=== PATIENT | male | born 1990 | race Hispanic/Latino ===

== ENCOUNTER → 2018-05-06 | Outpatient (REF) | payer OTHER ==
[~2018-05-06] MED LIST: AZIT500T2 PO; NAPR-50 PO; PRED20TA PO
[2018-05-06 22:46] LABS: CHLAMYDIA DNA AMPLIFICATION NEGATIVE (NEGATIVE); GC DNA AMPLIFICATION NEGATIVE (NEGATIVE)
== END ==
LOC: M SFHCLERA 13:16
PROVIDERS: ATTEND Physician Assistant
DX: J02.9 Acute pharyngitis, unspecified (principal)

== ENCOUNTER 2018-05-08 20:47 | Emergency (ER) | payer OTHER ==
[~2018-05-08] VITALS: Ht 180.3 cm; Wt 100.0 kg
[2018-05-08 20:47] VITALS: BP 141/76
[2018-05-08] MEDS ORDERED: NAPR-50 PO (22:13)
[2018-05-08] MEDS ORDERED: AZIT500T2 PO (22:13)
[2018-05-08] MEDS ORDERED: predniSONE 20 MG TAB PO ONE (23:00)
[2018-05-08] MEDS ORDERED: PRED20TA PO (23:08)
== END 2018-05-08 23:20 | disposition home or self-care (01) ==
LOC: M ED 20:47
DX: J03.80 Acute tonsillitis due to other specified organisms (principal); B97.89 Other viral agents as the cause of diseases classified elsewhere

== ENCOUNTER → 2019-03-16 | Outpatient (REF) | payer OTHER ==
[~2019-03-16] MED LIST changes: -AZIT500T2 PO; +AZIT500T5 PO; +IBUP-1114 PO; -NAPR-50 PO; +NAPR-837 PO; +TYLE-45 PO
== END ==
LOC: M SFHCLERA 10:04
PROVIDERS: ATTEND Physician Assistant
DX: J36 Peritonsillar abscess (principal)

== ENCOUNTER → 2020-06-05 | Outpatient (REF) | payer OTHER | LOC: M LAB REF 15:48 | PROVIDERS: ATTEND Otolaryngology | DX: H60.312 Diffuse otitis externa, left ear (principal) ==

== ENCOUNTER 2020-10-29 05:58 | Day surgery (SDC) | payer OTHER ==
[~2020-10-29] VITALS: Ht 182.9 cm; Wt 116.1 kg
[~2020-10-29 05:58] MED LIST changes: +AMOX125REC PO
[2020-10-29] MEDS ORDERED: MIDAZOLAM INJ 2MG/2ML VIAL (J2250 PER 1MG) As Ordered ONE (07:05)
[2020-10-29] MEDS ORDERED: ROCURONIUM BROMIDE 50 MG/5 ML VIAL As Ordered ONE (07:09)
[2020-10-29] MEDS ORDERED: fentaNYL 100 MCG/2 ML INJECTION (J3010) As Ordered ONE ×2 (07:09→10:56)
[2020-10-29] MEDS ORDERED: EPINEPHrine 1MG/ML INJ 30ML MD-VIAL As Ordered ONE (07:20)
[2020-10-29] MEDS ORDERED: LIDOCAINE W/EPINEPHRINE 1% 20ML VIAL As Ordered ONE (07:20)
[2020-10-29] MEDS ORDERED: CIPRODEX OTIC SUSP 7.5ML As Ordered ONE (07:20)
[2020-10-29] MEDS ORDERED: LR 1,000 ML IV ONE (07:35)
[2020-10-29] MEDS ORDERED: LIDOCAINE 2% 100MG/5ML SDV (FOR ANES.) As Ordered ONE (07:37)
[2020-10-29] MEDS ORDERED: dexameTHASONE 4 MG/ML 1ML VIAL (J1100 PER 1MG) As Ordered ONE ×2 (07:46→09:46)
[2020-10-29] MEDS ORDERED: HYDROmorphone HCL 2 MG/ML 1ML VIAL (J1170) As Ordered ONE (07:48)
[2020-10-29] MEDS ORDERED: propofoL 200 MG/20 ML VIAL As Ordered ONE (07:50)
[2020-10-29] MEDS ORDERED: LACRILUBE (AKWA TEARS) OPHTH OINT 3.5 GM As Ordered ONE (07:54)
[2020-10-29] MEDS ORDERED: SUGAMMADEX SODIUM 500 MG/5 ML VIAL (BRIDION) As Ordered ONE (09:38)
[2020-10-29] MEDS ORDERED: METOCLOPRAMIDE INJ 10MG/2ML VIAL (J2765 PER 1) As Ordered ONE (09:52)
[2020-10-29] MEDS ORDERED: ONDANSETRON 4MG/2ML VIAL As Ordered ONE (09:52)
[2020-10-29] MEDS ORDERED: fentaNYL 100 MCG/2 ML INJECTION (J3010) IV PRN (11:25)
[2020-10-29] MEDS ORDERED: LR 1,000 ML IV SCH ×2 (11:25)
[2020-10-29] MEDS ORDERED: oxyCODONE 5MG TAB PO PRN (11:25)
[2020-10-29] MEDS ORDERED: ONDANSETRON 4MG/2ML VIAL IV PRN (11:25)
[2020-10-29 14:05] VITALS: BP 122/56
--- NOTE | 2020-10-29 14:54 | RO ---
OPERATIVE NOTE DATE OF OPERATION: 10/29/2020 PREOPERATIVE DIAGNOSIS: Chronic left otitis media with cholesteatoma. POSTOPERATIVE DIAGNOSIS: Chronic left otitis media with cholesteatoma. PROCEDURE: Left tympanomastoidectomy. SURGEON: Dionicio Sood MD RESEARCH LABORATORY SPECIALIST: ANESTHESIA: FINDINGS: There was cholesteatoma in the middle ear space which went up into the mastoid and then down inferiorly over the oval window. It was over the round window as well and then went medial to the handle of malleus. The facial nerve monitor was used during the procedure. The nerve was stimulated during the procedure but was not injured during the procedure. DESCRIPTION OF PROCEDURE: Under general anesthesia with the patient intubated the patient was prepped and draped in usual manner. I started by cleaning the ear with Betadine and saline. I made a posterior tympanotomy incision and radial incisions laterally and then postauricular incision and then joined those two dissections. I harvested temporalis fascia to use as a graft later on. Once this was done I went into the middle ear space. The above findings were seen. I made an incision midportion of the tympanic membrane inferiorly and then went anterior to the handle of the malleus and then superiorly. That way I could see on both sides of the malleus. The handle part of the malleus looked clear. Most of the disease was in just medial to the handle of malleus in this area. Once this was done I drilled down into mastoid. I identified the sigmoid sinus area and the middle fossa plate and then I followed that superiorly anteriorly and I found the cholesteatoma in the mastoid. I dissected down in this area and then I dissected the cholesteatoma out up into the attic area. Because of the disease I took down the posterior canal wall. I went first superiorly and then gradually enlarged this area so that I could see well up into the attic and over the oval window area. I could see the facial nerve. There did not appear to be facial nerve dehiscence. I then dissected down to get closer to the facial nerve. I did not see the nerve. I then took down the posterior canal wall so I could remove all of the cholesteatoma. Earlier I had the malleus from the incus and then removed the remaining portion of the incus. 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 I removed the head of the malleus with malleus nipper. I then just teased the cholesteatoma free. I think I got all of the cholesteatoma out of the oval window area and off the facial nerve area. I did dissect the cholesteatoma free from the handle of the malleus and removed that tissue as well. Once this was done everything looked very good. I put some silastic sheeting in the middle ear space and then a piece of cartilage above that between the malleus and the horizontal semicircular canal. I then did meatoplasty by removing some of the tissue posteriorly and divided some of the cartilage. I then sutured this posteriorly with 3-0 Vicryl. I then placed the temporalis fascia on top of the area of the silastic sheet and cartilage and then put some Gelfoam on top of this and returned the drum to its original position. After this it looked good. I made sure the canal was all straightened out when I returned the __ to its original position. I put some 1/4 inch Iodoform gauze in the ear canal. I then closed the incision with 3-0 Prolene. The patient tolerated the procedure well. About 5 mL estimated blood loss. The nerve was stimulated during the procedure and was intact at the end of the procedure. The wound was dressed. The patient was extubated and transferred to the recovery room in excellent condition.
== END 2020-10-29 14:05 | disposition home or self-care (01) ==
LOC: M SDC 05:58
PROVIDERS: ATTEND Otolaryngology
DX: H65.22 Chronic serous otitis media, left ear (principal); H71.92 Unspecified cholesteatoma, left ear
CPT/HCPCS: 69641; 88304; 88311; J1100; J1170; J2250; J2405; J2765; J3010

== ENCOUNTER → 2021-03-15 | Outpatient (CLI) | payer OTHER ==
[2021-03-15 12:40] LABS: SEMEN APPEARANCE OPAQUE (OPAQUE); SEMEN VISCOSITY LIQUID (LIQUID); SEMEN VOLUME 1.4 ml (2.0-5.0)
[2021-03-15 12:41] LABS: WBC CONCENTRATION >1 M/ml (<=1 M/ml)
[2021-03-15 12:54] LABS: APPEARANCE, URINE CLEAR (CLEAR); BACTERIA, URINE AUTO NEGATIVE (NEGATIVE); BILIRUBIN, URINE AUTO NEGATIVE (NEGATIVE); BLOOD, URINE BLOOD NEGATIVE (NEGATIVE); COLOR, URINE YELLOW (YELLOW); GLUCOSE, URINE (UA) AUTO NEGATIVE (NEGATIVE); KETONE, URINE AUTO NEGATIVE (NEGATIVE); LEUKOCYTE ESTERASE, URINE AUTO NEGATIVE (NEGATIVE); NITRITE, URINE AUTO NEGATIVE (NEGATIVE); PROTEIN, URINE AUTO 1+ mg/dL (NEGATIVE); RBC, URINE AUTO 0 /HPF (0-3); SQUAMOUS EPITHELIAL CELL UR AU 0 /HPF (0-6); UROBILINOGEN, URINE AUTO 0.2 mg/dL (0.0-2.0); WBC, URINE AUTO 0 /HPF (0-3)
[2021-03-15 13:06] LABS: BASO % 0.3 % (0.0-1.0); EOS % 0.4 % (0.0-3.0); HEMATOCRIT 44.5 % (42.0-52.0); HEMOGLOBIN 14.8 g/dl (13.5-17.5); LYMPH # 2.1 10^3/uL (1.5-5.0); LYMPH % 28.9 % (24.0-44.0); MEAN CORPUSCULAR HEMOGLOBIN 28.5 pg (27.0-33.0); MEAN CORPUSCULAR HGB CONC 33.3 g/dl (32.0-36.5); MEAN CORPUSCULAR VOLUME 85.6 fl (80.0-96.0); MONO # 0.5 10^3/uL (0.0-0.8); MONO % 7.3 % (2.0-8.0); NEUTROPHILS # 4.6 10^3/uL (1.5-8.5); NEUTROPHILS % 62.7 % (36.0-66.0); PLATELET COUNT, AUTOMATED 292 10^3/uL (150-450); WHITE BLOOD COUNT 7.3 10^3/uL (4.0-10.0)
[2021-03-15 14:08] LABS: ALT/SGPT 45 U/L (12-78); BLOOD UREA NITROGEN 9 MG/DL (7-18); CALCIUM LEVEL 9.5 MG/DL (8.5-10.1); CARBON DIOXIDE LEVEL 27 MEQ/L (21-32); CHLORIDE LEVEL 104 MEQ/L (98-107); CREATININE FOR GFR 0.94 MG/DL (0.70-1.30); GLOMERULAR FILTRATION RATE > 60.0 (>60); GLUCOSE, FASTING 84 MG/DL (70-100); POTASSIUM SERUM 4.2 MEQ/L (3.5-5.1); SODIUM LEVEL 138 MEQ/L (136-145)
[2021-03-15 14:09] LABS: ALBUMIN 4.3 GM/DL (3.2-5.2); BILIRUBIN,TOTAL 0.3 MG/DL (0.2-1.0); CHOLESTEROL LEVEL 227 MG/DL (<200); CHOLESTEROL RISK RATIO 5.404 (<5); HDL CHOLESTEROL 42 MG/DL (>40); LDL CHOLESTEROL 152 MG/DL (<100); NON-HDL-C 185 MG/DL; THYROXINE (T4) 9.4 UG/DL (4.5-12.0); TOTAL PROTEIN 7.9 GM/DL (6.4-8.2); TRIGLYCERIDES LEVEL 164 MG/DL (<150)
== END ==
LOC: M LAB 12:05
PROVIDERS: ATTEND Family Medicine
DX: Z00.00 Encounter for general adult medical examination without abnormal findings (principal); Z98.52 Vasectomy status; N50.812 Left testicular pain

== ENCOUNTER 2022-02-17 15:45 | Emergency (ER) | payer OTHER ==
[~2022-02-17] VITALS: Ht 177.8 cm; Wt 118.3 kg
[2022-02-17 15:45] VITALS: BP 149/92
[2022-02-17] MEDS ORDERED: SERT50TA29 (16:07)
[2022-02-17] MEDS ORDERED: FLUORESCEIN OPHTH 1 MG STRIP OD ONE (18:15)
[2022-02-17] MEDS ORDERED: TETRACAINE 0.5% OPHTH SOLN 4ML OD ONE (18:15)
[2022-02-17] MEDS ORDERED: BACIOIN23 OD (18:41)
[2022-02-17] MEDS ORDERED: POLYTRIM OPTH DROPS 10ML OD SCH (21:00)
== END 2022-02-17 18:51 | disposition home or self-care (01) ==
LOC: M ED 15:45
DX: H10.31 Unspecified acute conjunctivitis, right eye (principal)

== ENCOUNTER → 2022-09-23 | Outpatient (CLI) | payer OTHER ==
[~2022-09-23] MED LIST changes: +BACIOIN23 OD; +SERT50TA29
== END ==
LOC: M SLEEP 20:00
PROVIDERS: ATTEND Nurse Practitioner Family
DX: G47.33 Obstructive sleep apnea (adult) (pediatric) (principal)

== ENCOUNTER 2022-10-02 01:59 | Emergency (ER) | payer OTHER ==
[~2022-10-02] VITALS: Ht 180.3 cm; Wt 126.8 kg
[2022-10-02] MEDS ORDERED: DERMABOND TOPICAL SKIN ADHESIVE TOP ONE (08:00)
[2022-10-02 08:48] VITALS: BP 139/85
[2022-10-02] MEDS ORDERED: CEPH500C PO (10:42)
== END 2022-10-02 08:23 | disposition home or self-care (01) ==
LOC: M ED 01:59
DX: L76.22 Postprocedural hemorrhage of skin and subcutaneous tissue following other procedure (principal); F41.9 Anxiety disorder, unspecified; Z79.899 Other long term (current) drug therapy

== ENCOUNTER → 2025-02-06 | Outpatient (CLI) | payer OTHER ==
[~2025-02-06] MED LIST changes: +CEPH500C PO
== END ==
LOC: M SLEEP 20:00
PROVIDERS: ATTEND Registered Nurse
DX: G47.33 Obstructive sleep apnea (adult) (pediatric) (principal)

== ENCOUNTER → 2025-04-15 | Outpatient (CLI) | payer OTHER | LOC: M SLEEP 20:00 | PROVIDERS: ATTEND Registered Nurse | DX: G47.33 Obstructive sleep apnea (adult) (pediatric) (principal) ==